=== PATIENT | male | born 1980 | race Caucasian/White ===

== ENCOUNTER → 2020-09-07 | Day surgery (SDC) | payer BC ==
[2020-09-07] VITALS (7 sets, daily range): BP systolic 152–172; BP diastolic 88–96; PULSE 104–112; TEMP 97.9–99
[~2020-09-07] VITALS: Ht 180.3 cm; Wt 91.5 kg
[~2020-09-07] MED LIST: ADVIL LIQUI-GE200 MG PO; BENADRYL25 M2 PO; COLACE 100100 MG/CAP PO; HCTZ12.5TAB PO; NORCO 325 MG-51 TAB PO; SUDAFED30 MG PO
--- NOTE | 2020-09-07 15:45 | NUR ---
Pt to [facility] [facility] via cart from PACU. Pt awake and alert. Drinking water upon arrival. Pt denies nausea. Pt rates pain to groin at 4/10. Denies need for pain medication at this time. Pudding and more water given per pt request. in room. Will continue to monitor. Call light within reach.
--- NOTE | 2020-09-07 16:00 | NUR ---
Pt continues to rest. Denies needs. Tolerating PO food without difficulties. Call light within reach.
--- NOTE | 2020-09-07 16:15 | NUR ---
Pt visiting with his . Denies needs. Call light within reach.
--- NOTE | 2020-09-07 16:30 | NUR ---
Percocet 5/325mg 1 tablet po given per prn orders. Pt having pain 7/10 to groin. Call light within reach.
--- NOTE | 2020-09-07 17:00 | NUR ---
Pt up to restroom with stand by assistance. Gait steady. Pt voids large amount without difficulties. Pt back to room. Pt request to stand as it feels better at the moment. Pt steady. Call light placed within reach.
--- NOTE | 2020-09-07 17:15 | NUR ---
IV site discontinued with all parts intact. Pt dressing with assistance from .
--- NOTE | 2020-09-07 17:30 | NUR ---
Discharge instructions reviewed. Pt and voice understanding. Pt escorted to private car via wheel chair. Pt accompanied home by his .
== END ==
LOC: SDCO 11:16 → COL.RAD 13:30
DX: N44.2 Benign cyst of testis (principal); D40.10 Neoplasm of uncertain behavior of unspecified testis; I10 Essential (primary) hypertension; J45.909 Unspecified asthma, uncomplicated
CPT/HCPCS: J0690; J1100; J2405; J2704; J3010; J7120